=== PATIENT | female | born 1995 | race Caucasian/White ===

== ENCOUNTER 2023-10-26 12:11 | Emergency (ER) | payer SELFPAY ==
[2023-10-26 12:22] VITALS: BP 118/61; PULSE 75; RESP 20; TEMP 36.3; O2SAT 99
[2023-10-26 12:30] VITALS: BP 118/61; PULSE 75; RESP 20; TEMP 36.3; O2SAT 99
--- NOTE | 2023-10-26 12:43 | ED.GENADULT ---
HPI - General Adult General Chief complaint: Abdominal Pain Stated complaint: Diarrhea/Abdominal Pain/Fever Time Seen by Provider: 10/26/23 12:43 Source: patient, RN notes reviewed and old records reviewed Mode of arrival: ambulatory Limitations: no limitations History of Present Illness HPI narrative: 27-year-old female to [facility] Care with complaint generalized abdominal discomfort described as cramping started yesterday. Patient diarrhea yesterday has. Patient denies nausea, vomiting, fever, shortness of breath, pertinent medical history, allergies. Patient reports that menstrual cycle started today. Respirations even and nonlabored. Patient speaking in complete sentences difficulty. Patient sitting comfortably in exam room. Patient in no acute distress. Related Data Home Medications Medication Instructions Recorded Confirmed No Home Medications 10/26/23 10/26/23 Allergies Allergy/AdvReac Type Severity Reaction Status Date / Time No Known Allergies Allergy Verified 10/26/23 12:14 Review of Systems Review of Systems: All systems reviewed & are unremarkable except as noted in HPI and below Constitutional: Constitutional: Reports no additional constitutional complaints Eyes: Eyes: Reports no additional eye complaints ENT: Reports system reviewed and no additional complaints, except as documented Cardiovascular: Cardiovascular: Reports no additional cardiovascular complaints, Denies chest pain and Denies dyspnea Respiratory: Respiratory: Reports no additional respiratory complaints, Denies cough and Denies dyspnea Gastrointestinal: Gastrointestinal: Reports as per HPI, Reports GI cramping, Denies diarrhea ( present yesterday and resolved per patient), Denies nausea and Denies vomiting Musculoskeletal: Musculoskeletal: Reports no additional musculoskeletal complaints Neurologic: Reports system reviewed and no additional complaints, except as documented Psychiatric: Psychiatric: Reports no additional psychiatric complaints PMFSH Comments At the time of my signature, I reviewed and agree with the nursing past medical, surgical, social, and family history. There is no relevant family history pertinent to the patient complaint. Exam Const: General: cooperative, healthy appearing, comfortable, no acute distress, alert and well nourished Nutritional Appearance: well nourished Orientation/consciousness: patient oriented x3 Limitations: no limitations HENMT: Head: normal to inspection Ears: external ears normal Face/Nose/Sinus: Normal external nose present, Normal nares present, normal facial exam, No erythema and No edema Face and sinus: normal facial exam, no erythema and no edema Mouth: Yes Normal oral and palatal mucosa present Eyes: General: appearance normal, both eyes and all related structures Neck: Neck: normal visual inspection, full ROM and no meningeal signs Lymphatic: no lymphadenopathy noted and no lymphedema noted Chest: Chest palpation & inspection: normal inspection of the chest Resp: Effort & Inspection: normal respiratory effort and able to speak in complete sentences Auscultation: clear to auscultation bilaterally Cardio: Jugular venous distension: no JVD Rate: regular rate Rhythm: regular rhythm GI: GI Palp: No abdominal tenderness, Yes Soft to palpation, No Tenderness to palpation present (GI), No Guarding due to palpation present (GI), No Rigid due to palpation, Yes No hepatosplenomegaly present, No Hepatomegaly present, No Splenomegaly present, No Ascites present, No Carnett's sign positive and No Rebound tenderness present Back/Spine/Pelvis: Cervical Spine: cervical ROM normal Skin: General skin exam: normal color, no rashes or lesions noted and turgor normal Neuro: General: patient oriented x3, gait normal, moves all extremities and no meningeal signs Speech: normal speech Gait exam (Neuro): Normal gait present Extrem: General: normal to inspection, full ROM and capill
== END 2023-10-26 12:48 | disposition home or self-care (01) ==
PROVIDERS: Emergency Provider Nurse Practitioner Family
DX: N94.6 Dysmenorrhea, unspecified (principal); B34.9 Viral infection, unspecified
CPT/HCPCS: 99211; G0463